=== PATIENT | female | born 1990 | race Caucasian/White ===

== ENCOUNTER 2018-09-19 20:32 | Emergency (ER) | payer BC, MEDICAID ==
[~2018-09-19] VITALS: Ht 162.6 cm; Wt 108.0 kg
[~2018-09-19 20:32] MED LIST: ALPR-624 PO; PREN1TAB48 PO
[2018-09-19 20:40] VITALS: BP 135/89
[2018-09-19] MEDS ORDERED: ketorolac tromethamine 15mg/ml inj. IM ONE (23:15)
== END 2018-09-20 00:28 | disposition home or self-care (01) ==
LOC: ER 20:32
DX: S39.012A Strain of muscle, fascia and tendon of lower back, initial encounter (principal); Z79.899 Other long term (current) drug therapy; X58.XXXA Exposure to other specified factors, initial encounter; Y93.89 Activity, other specified; Y92.89 Other specified places as the place of occurrence of the external cause; Y99.8 Other external cause status
CPT/HCPCS: 96372; 99283; J1885

== ENCOUNTER 2024-04-23 20:29 | Emergency (ER) | payer BC, MEDICAID ==
[~2024-04-23] VITALS: Ht 165.1 cm; Wt 100.6 kg
[2024-04-23] MEDS ORDERED: HYDR-3686 PO (23:25)
[2024-04-23 23:35] VITALS: BP 132/84; PULSE 87; RESP 18; TEMP 98.7; O2SAT 99
== END 2024-04-23 23:36 | disposition home or self-care (01) ==
LOC: ER 20:31
DX: F41.9 Anxiety disorder, unspecified (principal); Z87.440 Personal history of urinary (tract) infections; Z79.899 Other long term (current) drug therapy
CPT/HCPCS: 99283

== ENCOUNTER 2024-05-06 15:18 | Emergency (ER) | payer BC ==
[~2024-05-06] VITALS: Ht 162.6 cm; Wt 98.9 kg
[~2024-05-06 15:18] MED LIST changes: +HYDR-3686 PO
[2024-05-06 15:32] VITALS: TEMP 97.9; O2SAT 97
[2024-05-06 18:48] VITALS: BP 120/90; PULSE 90; RESP 16
== END 2024-05-06 18:50 | disposition home or self-care (01) ==
LOC: ER 15:19
DX: F41.9 Anxiety disorder, unspecified (principal)
CPT/HCPCS: 99283

== ENCOUNTER 2024-07-02 22:24 | Emergency (ER) | payer BC ==
[~2024-07-02] VITALS: Ht 162.6 cm; Wt 89.5 kg
[2024-07-02 22:34] VITALS: TEMP 98.6
[2024-07-02] MEDS: ondansetron 4mg rapidly disintigrating tab PO ONE (23:42)
[2024-07-02] MEDS: ketorolac trometh 15mg/ml vial 15 MG/ML ML IM ONE (23:44)
[2024-07-03 00:09] VITALS: BP 134/90; PULSE 99; RESP 16; O2SAT 100
== END 2024-07-03 00:11 | disposition home or self-care (01) ==
LOC: ER 22:25
DX: R51.9 Headache, unspecified (principal); F41.9 Anxiety disorder, unspecified; Z79.899 Other long term (current) drug therapy; Z72.89 Other problems related to lifestyle
CPT/HCPCS: 96372; 99283; J1885

== ENCOUNTER 2024-11-21 16:22 | Emergency (ER) | payer BC ==
[~2024-11-21] VITALS: Ht 162.6 cm; Wt 85.9 kg
[2024-11-21 16:25] VITALS: BP 166/100; PULSE 111; TEMP 97.7; O2SAT 99
--- NOTE | 2024-11-21 16:48 | Physician Documentation ---
History of Present Illness ~ Chief Complaint: Back Pain Stated Complaint: BACK PAIN Primary Medical Doctor: ryan CRUMP Patient is a 34-year-old female that presents to the emergency department for evaluation of low back pain. Patient denies any incontinence of bowel or bladd er saddle anesthesia difficulty with ambulation significant numbness or tingling in her extremities at this time. Medication Reconciliation Allergies: Coded Allergies: No Known Allergies (Unverified , 07/02/24) Scheduled Alprazolam* (Xanax*), 1 TAB PO TID PRN Vits W-Ca,Fe,Fa(<1MG)* (*), 1 EACH PO DAILY, (Reported) Scheduled PRN Hydroxyzine Hcl (Atarax), 1 TAB PO Q12H PRN for anxiety Past Medical History Past Medical History: UTI, Anxiety Past Surgical History: noncontributory, other Alcohol Use: Occasionally Drug Use: none Lives with: Family, Other Lives In: Home Occupation: employed Physical Exam Physical Exam Vital Signs: Temperature: 97.7, Source: Temporal, Heart Rate: 111, Respiratory Rate: 16, BP: 166/100, Pulse Oximetry: 99, Weight: 85.900 Progress Results/Orders Results/Orders Vital Signs 11/21/24 16:25 Temp 97.7 Pulse 111 Resp 16 B/P (MAP) 166/100 Pulse Ox 99 Departure Referrals: NO PRIMARY CARE PROVIDER (PCP) SNOW FINLEY Nov 21, 2024 16:48
[2024-11-21 18:03] VITALS: RESP 18
[2024-11-21] MEDS: ketorolac trometh 15mg/ml vial 15 MG/ML ML IM ONE (18:03)
== END 2024-11-21 19:04 | disposition home or self-care (01) ==
LOC: ER 16:23
DX: M54.50 Low back pain, unspecified (principal); F41.9 Anxiety disorder, unspecified; Z72.89 Other problems related to lifestyle; Z79.899 Other long term (current) drug therapy
CPT/HCPCS: 96372; 99284; J1885; J2919